=== PATIENT | female | born 1980 | race African-American/Black ===

== ENCOUNTER 2017-03-29 09:16 | Emergency (ER) | payer SELFPAY ==
--- NOTE | ~2017-03-29 | CR72 ---
[facility] A Service of [facility] & [facility] RADIOLOGY TEXT RESULTS PATIENT: CHERISE FLETCHER LOCATION: [facility] : 78 UNIT #: [id number] AGE: [address]: Marta Pritchett MD SEX: F ORDER DR: [id number] [facility] [address] [place], [place] [address] [id number] E MR#: [id number] Acc #: [id number] NAME: CHERISE FLETCHER : 1980 SEX: F STUDY DATE/TIME: 03/29/2017 10:33 UNIT: [facility] ROOM: STUDY DESCRIPTION: CR Chest Single View Portable Attending Physician: Marta Pritchett M.D. Ordering Physician: Marta Pritchett M.D. Primary Care Physician: Marcus Newton M.D. MEDICAL IMAGING REPORT This report is preliminary unless electronic signature is present EXAM Portable chest radiographic INDICATION Pain in the right upper chest and back as well as shortness of breath starting this morning. FINDINGS A single AP portable view of the chest shows both lungs to be clear. The heart is normal in size. The mediastinal contour is normal. No significant bone abnormalities are seen. IMPRESSION Negative. Dictated by... Joan Lombardi M.D. THIS IS AN ELECTRONICALLY VERIFIED REPORT Joan Lombardi M.D. at 03/29/2017 5:20 PM LUL/barbra TD: 03/29/2017 12:39 JOB #: [id number] MEDICAL IMAGING REPORT Page 1 of 1 COPY
[~2017-03-29 09:16] MED LIST: BENADRYL25 MG PO; BENZONATATE PO; FLEXERIL10 MG PO; IBUPROFEN100 MG PO; IBUPROFEN800 MG PO; LOTRIMIN 1% CR30 GM EXT; MEDROL DOSEPAK4 MG PO; VICODIN 5/1 TAB 5/50 PO; ZOFRAN ODT4 MG PO
[2017-03-29 10:38] LABS: BASOPHIL% 0.5 % (0-2.5); EOSINOPHIL% 0.4 % (0.0-7.0); HEMATOCRIT 38.5 % (35.0-45.0); HEMOGLOBIN 12.6 gm/dL (12.0-16.0); LYMPHOCYTE% 37.9 % (17.0-45.0); MEAN CELL VOLUME 93.9 FL (83-96); MEAN CORPUSCULAR HEMOGLOBIN 30.9 PG (28-34); MEAN CORPUSCULAR HGB CONC 32.9 g/dL (30-36); MEAN PLATELET VOLUME 6.9 FL (6.5-11.5); MONOCYTE# 0.5 X10e3 (0-1.0); MONOCYTE% 6.1 % (3.0-12.0); NEUTROPHIL# 4.4 X10e3 (1.5-7.1); NEUTROPHIL% 55.1 % (40-75); PLATELET COUNT 283 X10e3 (140-420); RED CELL DISTRIBUTION WIDTH 13.1 % (11.0-15.5)
[2017-03-29 10:39] LABS: DIFF IND NO
[2017-03-29 11:01] LABS: CALCIUM SERUM 8.8 mg/dL (8.4-10.2); GLOM FILT RATE Estimated 83.4 mL/min (>60)
== END 2017-03-29 11:23 | disposition home or self-care (01) ==
LOC: CED 09:16
PROVIDERS: Emergency Medicine
DX: S29.012A Strain of muscle and tendon of back wall of thorax, initial encounter (principal); F17.210 Nicotine dependence, cigarettes, uncomplicated; Z98.51 Tubal ligation status; X58.XXXA Exposure to other specified factors, initial encounter
CPT/HCPCS: 36415; 71010; 80048; 85025; 85379; 96372; 99283; J1885